=== PATIENT | male | born 1955 | race Caucasian/White ===

== ENCOUNTER 2019-09-18 18:48 | Emergency (ER) | payer SELFPAY ==
[2019-09-18 18:55] VITALS: BP 112/59; PULSE 50; RESP 16; TEMP 36.8; O2SAT 98
--- NOTE | 2019-09-18 18:58 | ED.URI ---
HPI - URI/Sore Throat General Chief Complaint: Upper Respiratory Infection Stated Complaint: cough and congestion Time Seen by Provider: 09/18/19 18:58 Source: patient and RN notes reviewed History of Present Illness HPI Narrative: Patient is 64-year-old male that presents the urgent care with complaints of bronchitis with cough and chest congestion for 2 weeks. Patient states that he has not had any shortness of breath or wheezing. Denies fever, chills, nausea, vomiting. States that his he had bronchitis in the past. No other acute complaints. No acute distress noted. Patient read the plan of care. Related Data Allergies Allergy/AdvReac Type Severity Reaction Status Date / Time No Known Allergies Allergy Verified 09/18/19 19:04 Review of Systems Review of Systems: Narrative: CONSTITUTIONAL: Denies fever, chills, or sweats. EYES: Denies visual changes, redness, or discharge. ENT: Reports of mild sinus congestion CARDIOVASCULAR: Denies chest pain, palpitations, or edema. RESPIRATORY: Reports of dry cough without dyspnea GASTROINTESTINAL: Denies abdominal pain, nausea, vomiting, or diarrhea. GENITOURINARY: Denies dysuria or hematuria. SKIN: Denies rash or itching. MUSCULOSKELETAL: Denies back pain, joint pain, or myalgia. NEUROLOGIC: Denies headache, numbness, or weakness. All other systems reviewed are negative, except as documented in HPI. PMFSH Comments At the time of my signature, I reviewed and agree with the nursing past medical, surgical, social, and family history. There is no relevant family history pertinent to the patient complaint. Exam Narrative: Exam Narrative: GENERAL: This is a well-nourished, well-developed patient, in no apparent distress. HEAD: normocephalic, atraumatic. EYES: PERRL. Sclera clear/white. Vision is grossly intact. EARS: External ears normal, auditory canals clear and without drainage, TMs normal without perforation. Hearing grossly intact. NOSE: External nose normal with no obvious nasal discharge THROAT: Mucous membranes moist NECK: Neck supple CARDIOVASCULAR: Regular rate and rhythm without murmurs, gallops, or rubs. RESPIRATORY: Clear to auscultation. Breath sounds equal bilaterally. Mild crackles cleared with cough SKIN: warm, intact with no suspicious lesions or rash, good texture and turgor. NEURO: awake, alert, and oriented to person, place and time. There were no obvious focal neurologic abnormalities. EXTREMITIES: No clubbing, cyanosis, or edema. Course Vital Signs Vital signs: Vital Signs Temperature 98.3 F 09/18/19 18:55 Pulse Rate 50 L 09/18/19 18:55 Respiratory Rate 16 09/18/19 18:55 Blood Pressure 112/59 L 09/18/19 18:55 Pulse Oximetry 98 09/18/19 18:55 Temperature 98.3 F 09/18/19 18:55 Pulse Rate 50 L 09/18/19 18:55 Respiratory Rate 16 09/18/19 18:55 Blood Pressure 112/59 L 09/18/19 18:55 Pulse Oximetry 98 09/18/19 18:55 Reviewed MDM - URI/Sore Throat MDM Narrative Medical decision making narrative: Advised the patient to complete steroid regimen as prescribed. Use at home inhaler as needed for shortness of breath or wheezing. If you develop any increase in persistent shortness of breath, wheezing, fever, productive cough?go to the emergency room. Follow-up with PCP within 2 to 5 days if worsening symptoms or failure to improve. Differential Diagnosis Differential diagnosis: Likely upper respiratory infection, otitis media, sinusitis, viral infection, bronchitis, influenza and pharyngitis Critical Care Time Critical Care Time Critical Care Time: No Discharge Plan Discharge Clinical Impression: Bronchitis Patient Disposition: Home, Self-Care Condition: Stable Instructions: Antibiotic Form, Acute Bronchitis (ED) Additional Instructions: Advised the patient to complete steroid regimen as prescribed. Use at home inhaler as needed for shortness of breath or wheezing. If you develop any increase in persistent shortness
== END 2019-09-18 19:15 | disposition home or self-care (01) ==
PROVIDERS: Emergency Provider Nurse Practitioner Family
DX: J40 Bronchitis, not specified as acute or chronic (principal)
CPT/HCPCS: 99213; G0463

== ENCOUNTER 2020-04-12 15:56 | Emergency (ER) | payer SELFPAY ==
[2020-04-12 16:02] VITALS: BP 110/62; PULSE 52; RESP 16; TEMP 36.6; O2SAT 98
--- NOTE | 2020-04-12 16:25 | ED.FALL ---
HPI - Fall General Chief Complaint: Fall Stated Complaint: left side injury Time Seen by Provider: 04/12/20 16:26 Source: patient and RN notes reviewed History of Present Illness HPI Narrative: Patient is a 64-year-old male who presents the urgent care with complaints of left side rib pain. Patient states that 5 days ago he was up approximately 3 foot on a ladder and fell onto a metal bar onto the floor. Patient states that it was feeling better but he twisted this morning and the pain seems to have worsened. Patient denies of any difficulty breathing, shortness of breath, chest pain. Patient reports of an acute on chronic cough due to smoking and has had bronchitis in the past. No other acute complaints. No acute distress noted. Patient read the plan of care. Related Data Home Medications Medication Instructions Recorded Confirmed No Home Medications 04/12/20 04/12/20 Allergies Allergy/AdvReac Type Severity Reaction Status Date / Time No Known Allergies Allergy Verified 04/12/20 16:03 Review of Systems Review of Systems: Narrative: CONSTITUTIONAL: Denies fever, chills, or sweats. EYES: Denies visual changes, redness, or discharge. ENT: Denies rhinorrhea, congestion, sore throat, or otalgia. CARDIOVASCULAR: Denies chest pain, palpitations, or edema. RESPIRATORY: Reports of acute on chronic cough without dyspnea; reports of left-sided rib pain GASTROINTESTINAL: Denies abdominal pain, nausea, vomiting, or diarrhea. GENITOURINARY: Denies dysuria or hematuria. SKIN: Denies rash or itching. MUSCULOSKELETAL: Denies back pain, joint pain, or myalgia. NEUROLOGIC: Denies headache, numbness, or weakness. All other systems reviewed are negative, except as documented in HPI. [facility] Social History Social History (System 02/08/20 @ 13:11 by May Palmer) Smoking status: Heavy tobacco smoker Alcohol intake: never Comments At the time of my signature, I reviewed and agree with the nursing past medical, surgical, social, and family history. There is no relevant family history pertinent to the patient complaint. Exam Narrative: Exam Narrative: GENERAL: This is a well-nourished, well-developed patient, in no apparent distress. HEAD: normocephalic, atraumatic. EYES: PERRL. Sclera clear/white. Vision is grossly intact. EARS: External ears normal NOSE: External nose normal with no obvious nasal discharge, nares without redness, no rhinorrhea. THROAT: Mucous membranes moist NECK: Neck supple CARDIOVASCULAR: Regular rate and rhythm RESPIRATORY: Clear to auscultation. Breath sounds equal bilaterally. No wheezes, rales, or rhonchi. Mild tenderness to left upper anterior ribs without ecchymosis SKIN: warm, intact with no suspicious lesions or rash, good texture and turgor. NEURO: awake, alert, and oriented to person, place and time. There were no obvious focal neurologic abnormalities. EXTREMITIES: No clubbing, cyanosis, or edema. Course Vital Signs Vital signs: Vital Signs Temperature 97.8 F 04/12/20 16:02 Pulse Rate 52 L 04/12/20 16:02 Respiratory Rate 16 04/12/20 16:02 Blood Pressure 110/62 04/12/20 16:02 Pulse Oximetry 98 04/12/20 16:02 Temperature 97.8 F 04/12/20 16:02 Pulse Rate 52 L 04/12/20 16:02 Respiratory Rate 16 04/12/20 16:02 Blood Pressure 110/62 04/12/20 16:02 Pulse Oximetry 98 04/12/20 16:02 Reviewed MDM - Fall MDM Narrative Medical decision making narrative: Advised the patient to practice deep breathing. May use Tylenol/ibuprofen [id number] as needed for pain. Do not bind the chest. May use a pillow to comfort when coughing. If you develop any increase in symptoms associated with shortness of breath, difficulty breathing or chest pain?go to the emergency room. Follow-up with your PCP within 2 to 5 days or for worsening symptoms or failure to improve. Patient refused x-ray at this time and states that he would not have came if his girlfriend did n
== END 2020-04-12 16:41 | disposition home or self-care (01) ==
PROVIDERS: Emergency Provider Nurse Practitioner Family
DX: R07.81 Pleurodynia (principal); F17.200 Nicotine dependence, unspecified, uncomplicated
CPT/HCPCS: 99212; G0463